=== PATIENT | female | born 1995 | race Two or more races ===

== ENCOUNTER 2018-03-21 19:46 | Emergency (ER) | payer MEDICAID ==
[~2018-03-21] VITALS: Ht 170.2 cm; Wt 76.9 kg
[~2018-03-21 19:46] MED LIST: LEVO1CAP PO; OXCA150T5 PO; QUET50TA15 PO
[2018-03-21 20:54] VITALS: BP 114/58
[2018-03-21 20:58] LABS: CLARITY,URINE CLEAR (Clear); COLOR,URINE YELLOW (Yellow); GLUCOSE, URINE NEGATIVE (Neg); KETONES,URINE NEGATIVE (Neg); LEUKOCYTE ESTERASE ,URINE NEGATIVE (Neg); NITRITES, URINE NEGATIVE (Neg); OCCULT BLOOD,URINE NEGATIVE (Neg); PH,URINE 6.5 (4.8-8.0); PROTEIN,URINE NEGATIVE (Neg); UROBILINOGEN,URINE 0.2 E.U/dL (0.2-1.0)
[2018-03-21] MEDS ORDERED: acetaminophen 325mg tablet PO ONE (21:00)
[2018-03-21] MEDS ORDERED: ibuprofen 200mg tablet PO ONE (21:00)
[2018-03-21] MEDS ORDERED: ibuprofen tablet 400 MG TABLET PO ONE (21:00)
[2018-03-21 21:04] LABS: UA COLLECTION TYPE CLN CATCH MIDSTREAM
[2018-03-21] MEDS ORDERED: ACET-812 PO (21:18)
== END 2018-03-21 21:42 | disposition home or self-care (01) ==
LOC: ER 19:47
DX: O26.893 Other specified pregnancy related conditions, third trimester (principal); M25.551 Pain in right hip; F12.10 Cannabis abuse, uncomplicated; F15.10 Other stimulant abuse, uncomplicated; Z3A.30 30 weeks gestation of pregnancy; Z59.0 Homelessness; Z79.899 Other long term (current) drug therapy
CPT/HCPCS: 81003; 99283

== ENCOUNTER 2021-06-23 07:55 | Emergency (ER) | payer MEDICAID ==
[~2021-06-23] VITALS: Ht 170.2 cm; Wt 81.7 kg
[2021-06-23] MEDS ORDERED: acetaminophen 325mg tablet PO ONE (09:05)
[2021-06-23] MEDS ORDERED: ibuprofen tablet 400 MG TABLET PO ONE (09:05)
[2021-06-23] MEDS ORDERED: ibuprofen 200mg tablet PO ONE (09:10)
--- NOTE | 2021-06-23 09:17 | NUR ---
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
[2021-06-23 09:28] LABS: URINE HCG NEGATIVE (NEG)
[2021-06-23 09:32] LABS: CLARITY,URINE SLIGHTLY CLOUDY (Clear); COLOR,URINE YELLOW (Yellow); GLUCOSE, URINE NEGATIVE (Neg); KETONES,URINE NEGATIVE (Neg); LEUKOCYTE ESTERASE ,URINE TRACE (Neg); NITRITES, URINE NEGATIVE (Neg); OCCULT BLOOD,URINE LARGE (Neg); PROTEIN,URINE 30 mg/dl (Neg); UROBILINOGEN,URINE 0.2 E.U/dL (0.2-1.0)
[2021-06-23 09:37] LABS: UA COLLECTION TYPE CLN CATCH MIDSTREAM
[2021-06-23 09:39] LABS: BACTERIA,URINE 1+ /HPF (Neg); MUCUS STRANDS FEW /LPF (Neg); RBC,URINE 50-100 /HPF (0-2); SQUAMOUS EPITHELIAL CELL,UR MODERATE /LPF (FEW); WBC,URINE 0-4 /HPF (0-4)
[2021-06-23 10:09] VITALS: BP 111/51
== END 2021-06-23 10:11 | disposition home or self-care (01) ==
LOC: ER 07:56
DX: N83.202 Unspecified ovarian cyst, left side (principal); R10.32 Left lower quadrant pain; F41.9 Anxiety disorder, unspecified; F31.9 Bipolar disorder, unspecified; F12.90 Cannabis use, unspecified, uncomplicated; F15.90 Other stimulant use, unspecified, uncomplicated; Z98.51 Tubal ligation status; Z98.890 Other specified postprocedural states; Z72.89 Other problems related to lifestyle; Z59.0 Homelessness; Z79.899 Other long term (current) drug therapy
CPT/HCPCS: 76856; 81001; 81025; 87088; 93976; 99284

== ENCOUNTER → 2021-06-28 | Emergency (ER) | payer MEDICAID ==
[~2021-06-28] VITALS: Ht 170.2 cm; Wt 84.0 kg
[2021-06-28 14:23] VITALS: BP 119/69
== END | disposition left against medical advice (07) ==
LOC: ER 13:32
DX: R10.84 Generalized abdominal pain (principal); Z53.21 Procedure and treatment not carried out due to patient leaving prior to being seen by health care provider

== ENCOUNTER 2022-02-12 10:57 | Emergency (ER) | payer MEDICAID ==
[~2022-02-12] VITALS: Ht 170.2 cm; Wt 81.8 kg
[2022-02-12 12:47] VITALS: BP 131/58
== END 2022-02-12 19:31 | disposition left against medical advice (07) ==
LOC: ER 10:57
DX: R10.9 Unspecified abdominal pain (principal); Z53.21 Procedure and treatment not carried out due to patient leaving prior to being seen by health care provider